=== PATIENT | female | born 1950 | race Caucasian/White ===

== ENCOUNTER 2019-09-23 09:08 | Outpatient (CLI) | payer MEDICARE ==
--- NOTE | 2019-09-23 09:56 | ULT ---
THYROID ULTRASOUND: HISTORY: Thyroid nodule. FINDINGS: There are no comparison studies available. Both lobes are homogeneous and have normal size. Right lobe measures 3.0 x 1.0 x 1.0 cm. The left l obe measures approximately 3.0 x 1.0 x 1.5 cm. There is a small hypoechoic nodule in the anterior right lobe which measures 3-6 mm. Recommend follo wup thyroid ultrasound in 6 months to confirm stability. POS: AH
== END 2019-09-23 09:09 | disposition home or self-care (01) ==
LOC: MADLABBHPM 09:08
PROVIDERS: ATTEND Family Medicine
DX: E04.1 Nontoxic single thyroid nodule (principal)
CPT/HCPCS: 76536

== ENCOUNTER 2020-04-30 07:48 | Outpatient (CLI) | payer MEDICARE ==
--- NOTE | 2020-04-30 08:51 | ULT ---
Thyroid ultrasound: 04/30/2020 COMPARISON: 09/23/2019 HISTORY: Reevaluate thyroid nodule TECHNIQUE: Multiplanar grayscale sonographic imaging of the thyroid gland provided. FINDINGS: The thyroid isthmus measures approximately 2 mm in AP dimension. The left lobe measures 2.2 x 1.1 x 0.6 cm and the right lobe measures 3.3 x 1.1 x 1.1 cm. There is a subcentimeter superior anterior right thyroid nodule measuring 6 x 4 mm, unchanged when co mpared to the prior examination. There is a probable second small medial right thyroid nodule measuring in the 4 mm range. No new nodules are seen. IMPRESSION:TI-Rads 4-moderately suspicious. Given nodule stability and size less than 1 cm, no furthe r follow-up required on the basis of thyroid RADS recommendations.
== END 2020-04-30 07:49 | disposition home or self-care (01) ==
LOC: MADULT 07:48
PROVIDERS: ATTEND Family Medicine
DX: E04.1 Nontoxic single thyroid nodule (principal)
CPT/HCPCS: 76536

== ENCOUNTER 2021-10-28 09:12 | Emergency (ER) | payer MEDICARE ==
[~2021-10-28 09:12] MED LIST: Lactated Ringer's 1,000 ML BAG ONE
[2021-10-28 10:07] LABS: #Lymphocytes 1.7 thou/uL (1.20-3.40); #Monocytes 0.5 thou/uL (0.11-0.59); #Neutrophils 3.1 thou/uL (1.40-6.50); %Basophils 0.6 % (0.0-1.0); %Eosinophils 0.2 % (0.0-10.0); %Lymphocytes 31.5 % (21.0-51.0); %Monocytes 8.9 % (0.0-10.0); %Neutrophils 58.7 % (42.0-75.0); Hemoglobin 13.2 g/dL (12.0-16.0); Mean Corpuscular HGB CONC 32.3 g/dL (32.0-36.0); Mean Corpuscular Hemoglobin 27.7 pg (27.0-31.0); Mean Corpuscular Volume 85.7 fL (78.0-98.0); Mean Platelet Volume 9.4 fL (7.4-10.4); Platelet Count 208 thou/uL (130-400); RBC Distribution Width 11.8 % (11.5-14.5); Red Blood Cell (RBC) Count 4.77 mill/uL (4.20-5.40); White Blood Cell (WBC) Count 5.3 thou/uL (4.8-10.8)
[2021-10-28 10:23] LABS: ALT (SGPT) 26 U/L (8-55); AST (SGOT) 29 U/L (5-34); Albumin 3.9 g/dL (3.4-4.8); Alkaline Phosphatase 99 U/L (40-110); Anion Gap 15 mmol/L (10-20); BUN (Urea Nitrogen) 14 mg/dL (9.8-20.1); Bilirubin, Total 0.5 mg/dL (0.2-1.2); Calc. Creatinine Clearance 0 mL/min (70-130); Calcium 9.3 mg/dL (7.8-10.44); Carbon Dioxide 23 mmol/L (23-31); Chloride 102 mmol/L (98-107); Estimated GFR 72; Globulin 2.4 g/dL (2.4-3.5); Glucose 126 mg/dL (83-110); Magnesium 2.1 mg/dL (1.6-2.6); Potassium 3.7 mmol/L (3.5-5.1); Protein, Total 6.3 g/dL (5.8-8.1); Sodium 136 mmol/L (136-145)
[2021-10-28 10:41] LABS: CKMB 3.2 ng/mL (0-6.6)
[2021-10-28] MEDS ORDERED: Aspirin Chewable 81 MG TAB ONE (10:53)
[2021-10-28 11:12] LABS: Bilirubin Negative (Negative); Blood, Urine Small (Negative); Glucose, Urine (Dipstick) Negative (Negative); Ketone, Urine Negative (Negative); Leukocyte Moderate (Negative); Nitrite Negative (Negative); Protein, Urine (Dipstick) Negative (Neg-Trace); Urobilinogen 0.2 mg/dL (Less than 2)
[2021-10-28] MEDS ORDERED: Metoprolol Tartrate 50 MG TAB ONE (11:14)
[2021-10-28 11:47] LABS: Clarity Hazy (Clear)
[2021-10-28 11:48] LABS: Bacteria/HPF 1+ HPF (None Seen); RBC/HPF 0-3 HPF (0-3); Squamous Epithelial 0-3 HPF (0-3)
[2021-10-28] MEDS ORDERED: Metoprolol Tartrate 5 MG/5 ML VIAL ONE (12:52)
== END 2021-10-28 14:40 | disposition short-term general hospital (02) ==
LOC: MADERS 09:12
DX: I48.91 Unspecified atrial fibrillation (principal); R77.8 Other specified abnormalities of plasma proteins; E03.9 Hypothyroidism, unspecified; E78.5 Hyperlipidemia, unspecified; E78.00 Pure hypercholesterolemia, unspecified; Z79.899 Other long term (current) drug therapy
CPT/HCPCS: 70450; 71045; 72125; 80053; 81003; 81015; 82553; 83735; 84443; 84484; 85025; 93005; 94760; 96361; 96374; J7120

== ENCOUNTER 2022-01-26 10:11 | Outpatient (CLI) | payer MEDICARE | END 2022-01-26 10:12 | disposition home or self-care (01) | LOC: MADRAD 10:11 | PROVIDERS: ATTEND Registered Nurse | DX: M25.511 Pain in right shoulder (principal); M19.011 Primary osteoarthritis, right shoulder ==